=== PATIENT | female | born 1950 | race Caucasian/White ===

== ENCOUNTER → 2017-05-02 | Outpatient (CLI) | payer MEDICARE, BC ==
[~2017-05-02] MED LIST: FLONASE16 GM; LOTREL 5/10 MG1 CAP PO; PREMARIN PO; RESTASIS32 EA OP; TRANXENE PO; VIT E PO; VITAMIN C PO; VITAMIN D 4001 UDTAB PO; ZANTAC PO; ZYRTEC PO
--- NOTE | ~2017-05-02 | MY11 ---
[facility]. [facility] A Service of [facility] RADIOLOGY TEXT RESULTS PATIENT: SHAWN ROY LOCATION: [facility] : 50 UNIT #: [id number] AGE: [address]: Devendra Jenkins MD SEX: F ORDER DR: [id number] [place] [id number] O MR#: [id number] Acc #: [id number] NAME: SHAWN ROY. : 1950 SEX: F STUDY DATE/TIME: 05/02/2017 10:29 UNIT: [facility] ROOM: STUDY DESCRIPTION: MY Mammogram Screening Dig [facility] Attending Physician: Devendra Jenkins M.D. Referring Physician: Devendra Jenkins M.D. Ordering Physician: Devendra Jenkins M.D. Primary Care Physician: Devendra Jenkins M.D. MEDICAL IMAGING REPORT This report is preliminary unless electronic signature is present. EXAMINATION Bilateral digital screening mammogram with CAD. DATE 05/02/2017 HISTORY 66-year-old female with no personal history of breast cancer. Family history of breast cancer in an aunt. No current complaints. COMPARISON Bilateral screening mammogram, 02/21/2016, 11/28/2014 and 08/23/[address] [facility] [place]. SPECIAL NOTE: The study was originally performed on 05/02/2017. It was submitted for interpretation today, 05/09/2017, after the arrival of outside comparison studies. FINDINGS CC and MLO views were obtained of each breast utilizing digital technique and reviewed with an FDA-approved CAD device. Heterogeneously dense fibroglandular tissue is present bilaterally, asymmetrically more prominent in the upper/outer left breast. This finding, however, appears unchanged compared to even the more remote study from 08/23/2013. No new or developing nodule is identified. Benign biopsy clip is demonstrated within the left breast anterior third medial hemisphere, unchanged. No definite architectural distortion features are identified. No suspicious clustered microcalcifications are seen. IMPRESSION [facility] A Service of [facility] RADIOLOGY TEXT RESULTS PATIENT: SHAWN ROY LOCATION: [facility] : 50 UNIT #: [id number] AGE: [address]: Devendra Jenkins MD SEX: F ORDER DR: CHRIST 2. Benign findings. Routine bilateral screening mammogram is recommended in one year. Patients over the age of 40 are entered into a reminder system with target due date for the next mammogram. A result letter will also be sent to the patient. BIRADS: 2 Benign findings. Dictated by... Mckenzie Farmer M.D. THIS IS AN ELECTRONICALLY VERIFIED REPORT Mckenzie Farmer M.D. at 05/14/2017 3:26 PM HI/jose ramon TD: 05/09/2017 17:30 JOB #: [id number] MEDICAL IMAGING REPORT Page 1 of 1
== END | disposition home or self-care (01) ==
LOC: SMAM 09:53
DX: Z12.31 Encounter for screening mammogram for malignant neoplasm of breast (principal); Z80.3 Family history of malignant neoplasm of breast
CPT/HCPCS: G0202